=== PATIENT | female | born 2000 | race Hispanic/Latino ===

== ENCOUNTER 2020-12-03 07:22 | Day surgery (SDC) | payer BC ==
[2020-12-03] MEDS ORDERED: SODIUM CHLORIDE 0.9% 1000 ML 1,000 ML IV SCH (08:00)
--- NOTE | 2020-12-03 08:10 | Anesthesia Day of Surgery ---
Anesthesia Day of Surgery - Day of Surgery Patient Examined: Yes Patient H&P Reviewed: Yes Patient is NPO: Yes
--- NOTE | 2020-12-03 08:10 | Anesthesia Consultation ---
Anesthesia Consult and Med Hx Date of service: 12/03/20 - Airway Anesthetic Teeth Evaluation: Good ROM Head & Neck: Adequate Mental/Hyoid Distance: Adequate Mallampati Class: Class II Intubation Access Assessment: Good - Pre-Operative Health Status ASA Pre-Surgery Classification: ASA1 Proposed Anesthetic Plan: MAC - Pulmonary Hx Smoking: No Hx Asthma: No Hx Respiratory Symptoms: No SOB: No COPD: No Hx Pneumonia: No Hx Sleep Apnea: No - Cardiovascular System Hx Hypertension: No Hx Coronary Artery Disease: No Hx Heart Attack/AMI: No Hx Angina: No Hx Percutaneous Transluminal Coronary Angioplasty (PTCA): No Hx Cardia Arrhythmia: No Hx Pacemaker: No Hx Internal Defibrillator: No Hx Valvular Heart Disease: No Hx Heart Murmur: No Hx Peripheral Vascular Disease: No - Central Nervous System Hx Neuromuscular Disorder: No Hx Seizures: No CVA: No Hx Back Pain: No Hx Psychiatric Problems: No - Gastrointestinal Hx Ulcer: Yes Hx Gastroesophageal Reflux Disease: Yes - Endocrine Hx Renal Disease: No Hx End Stage Renal Disease: No Hx Cirrhosis: No Hx Liver Disease: No Hx Insulin Dependent Diabetes: No Hx Non-Insulin Dependent Diabetes: No Hx Thyroid Disease: No Hx Hypothyroidism: No Hx Hyperthyroidism: No - Hematic Hx Anemia: No Hx Sickle Cell Disease: No - Other Systems Hx Alcohol Use: No Hx Substance Use: No Hx Cancer: No Hx Obesity: No
[2020-12-03] MEDS ORDERED: propofoL 200 MG/20 ML VIAL IV ONE (09:30)
--- NOTE | 2020-12-03 10:04 | Procedure Note ---
Date of procedure: 12/03/20 Pre-op diagnosis: GERD/ Abdominal Pain Post-op diagnosis: other (Mild to Moderate,Ersoive Esophagitis/ Gastritis/ Gastric Nodule and R/o Celiac Disease/ No Peptic Ulcer Disease was noted) Procedure: EGD with Biopsy Anesthesia: MAC Surgeon: MATEUS CHANEY Estimated blood loss: minimal Pathology: list Specimen disposition: to lab Condition: stable Disposition: same day (Continue treatment with PPI. Avoid aspirin and NSAID for 4 days; otherwise resume home medication and follow up in 1 to 2 weeks ([phone]).)
--- NOTE | 2020-12-03 10:13 | Operative Report ---
PROCEDURE: Esophagogastroduodenoscopy with biopsy. INDICATIONS: This is a 20-year-old white female complaining of GERD symptoms and abdominal pain. EGD was done to make sure there was not any significant upper GI pathology present. DESCRIPTION OF PROCEDURE: The procedure was done after getting informed consent with MAC anesthesia. Instrument was passed through the hypopharynx into the esophagus, which showed some mild to moderate distal erosive esophagitis. Biopsy was done from the distal esophagus. Stomach showed some gastric nodule as well as gastritis. Biopsy was done from the gastric antrum, gastric body and angular incisura as well as from the gastric nodule. The pylorus was patent. Duodenum in the first and second portion appeared normal. Biopsy was done from the second part to rule out for possible celiac disease. There was no peptic ulcer disease noted and there was minimal bleeding associated with the procedure. ASSESSMENT: Gastroesophageal reflux disease symptoms, abdominal pain, mild to moderate erosive esophagitis, gastritis, gastric nodule, rule out celiac disease. PLAN: To treat the patient with Dexilant. The patient is on it. We will have the patient avoid aspirin and aspirin-related products for the next few days and follow up in the office in 1-2 weeks' time. Procedure was done in the GI lab with assistance of the GI lab team, which included the GI nurse, oil processing technicianJoe and with assistance of anesthesia. JOB# [id number] WALDEMAR/DAYANA
[2020-12-03 10:23] VITALS: BP 112/66
--- NOTE | 2020-12-03 10:55 | Post Anesthesia Evaluation ---
- Post Anesthesia Evaluation Patient Participated: Yes Airway Patent: Yes Stable Respiratory Function: Yes Nausea/Vomiting: No Temp > 96.8F: Yes Pain Manageable: Yes Adequeate Hydration: Yes Anesthesia Complications: No Block Receding Appropriately: Not Applicable Patient on Ventilator: No
== END 2020-12-03 10:45 | disposition home or self-care (01) ==
LOC: GIO 07:22
DX: K21.00 Gastro-esophageal reflux disease with esophagitis, without bleeding (principal); R10.9 Unspecified abdominal pain; K29.50 Unspecified chronic gastritis without bleeding; K31.89 Other diseases of stomach and duodenum; Z98.890 Other specified postprocedural states; Z90.49 Acquired absence of other specified parts of digestive tract
CPT/HCPCS: 43239; 81025; 88305; 88342; J2704; J7030